=== PATIENT | male | born 1960 ===

== ENCOUNTER 2018-10-15 23:14 | Emergency (ER) | payer OTHER ==
[~2018-10-15] VITALS: Ht 167.6 cm; Wt 84.0 kg
[2018-10-15 23:20] VITALS: BP 141/78
== END 2018-10-16 00:15 | disposition home or self-care (01) ==
LOC: ED 10-16 00:01
DX: S20.162A Insect bite (nonvenomous) of breast, left breast, initial encounter (principal); S20.161A Insect bite (nonvenomous) of breast, right breast, initial encounter; W57.XXXA Bitten or stung by nonvenomous insect and other nonvenomous arthropods, initial encounter; Y93.89 Activity, other specified; Y92.89 Other specified places as the place of occurrence of the external cause; Y99.8 Other external cause status
CPT/HCPCS: 99281